=== PATIENT | male | born 1980 | race Caucasian/White ===

== ENCOUNTER 2017-09-19 18:33 | Emergency (ER) | payer OTHER ==
[~2017-09-19] VITALS: Ht 172.7 cm; Wt 147.4 kg
--- NOTE | 2017-09-19 18:58 | NUR ---
PT TO ER BED 10 C/O LLE CELLULITIS. APPEARS INFECTED. PT CAME IN W/ LOW GRADE FEVER AND TACHYCARDIC. GOWNED AND PLACED ON MONITOR. STABLE VITALS. MIGUEL ASHTON.
--- NOTE | 2017-09-19 21:15 | NUR ---
WIL SANCHEZ AT BEDSIDE FOR EVAL.
[2017-09-19] MEDS ORDERED: IV NS 0.9% 1,000 ML BAG IV ONE (21:30)
[2017-09-19] MEDS ORDERED: PIPERACILLIN /TAZOBACTAM 3.375 G in IV D5W 50 ML IV ONE (21:30)
[2017-09-19] MEDS ORDERED: VANCOMYCIN 1 GM in IV D5W 250 ML IV ONE (21:30)
[2017-09-19] MEDS ORDERED: PIPERACILLIN /TAZOBACTAM 3.375 G VIAL IV ONE (21:46)
[2017-09-19] MEDS ORDERED: VANCOMYCIN 1 GM VIAL ONE (21:46)
[2017-09-19 21:49] LABS: BASOPHILS % (AUTO) 0.7 % (0.0-2.0); EOSINOPHILS # (AUTO) 0.1 /CMM (0.0-0.7); EOSINOPHILS % (AUTO) 2.7 % (0.0-6.0); HEMATOCRIT 32 % (39-51); LYMPHOCYTES # (AUTO) 0.9 /CMM (0.8-4.8); LYMPHOCYTES % (AUTO) 23.9 % (20.0-44.0); MEAN CORPUSCULAR HEMOGLOBIN 32 PG (26.0-33.0); MEAN CORPUSCULAR HGB CONC 35 g/dl (31.0-36.0); MEAN CORPUSCULAR VOLUME 91 fL (80-96); MONOCYTES # (AUTO) 0.3 /CMM (0.1-1.30); MONOCYTES % (AUTO) 7.7 % (2.0-12.0); NEUTROPHILS # (AUTO) 2.7 /CMM (1.8-8.9); PLATELET COUNT (AUTO) 136 /CMM (150-450); RDW COEFFICIENT OF VARIATION 13.7 (11.5-15.0); RED BLOOD CELL COUNT(AUTO) 3.47 MIL/uL (4.5-6.0)
--- NOTE | 2017-09-19 21:51 | NUR ---
RADIOLOGY AT BEDSIDE FOR CHEST XRAY.
[2017-09-19 22:04] LABS: INR 1.11 (0.87-1.13); PROTHROMBIN TIME 11.6 SECS (9.5-12.7)
[2017-09-19 22:09] LABS: CALCIUM, SERUM 8.4 mg/dL (8.5-10.1); CREATININE 0.9 mg/dL (0.6-1.3); POTASSIUM 4.1 mmol/L (3.5-5.1)
[2017-09-19 22:14] LABS: ALBUMIN 2.9 g/dL (3.4-5.0); BILIRUBIN,TOTAL 0.8 mg/dL (0.2-1.0); TOTAL PROTEIN, SERUM 8.1 g/dL (6.4-8.2)
[2017-09-19 22:42] LABS: APPEARANCE,URINE CLOUDY (CLEAR); BILIRUBIN,URINE NEGATIVE (NEGATIVE); BLOOD, URINE TRACE-INTA Ery/uL (NEGATIVE); COLOR,URINE YELLOW (YELLOW); KETONES,URINE NEGATIVE (NEGATIVE); LEUKOCYTE ESTERASE ,URINE 1+ (NEGATIVE); NITRITE, URINE POSITIVE (NEGATIVE); PROTEIN,URINE NEGATIVE (NEGATIVE); UGLUCOSE 3+ mg/dL (NEGATIVE)
[2017-09-19 22:47] LABS: BACTERIA,URINE Many /HPF (None Seen); SQUAMOUS EPITHELIAL CELL,UR Rare /HPF (None Seen); WBC,URINE TOO NUMEROUS TO COUN /HPF (0-3)
[2017-09-19] MEDS ORDERED: ACETAMINOPHEN ES 500 MG TABLET ONE (23:06)
[2017-09-19] MEDS ORDERED: ACETAMINOPHEN ES 500 MG TABLET PO ONE (23:30)
--- NOTE | 2017-09-19 23:41 | NUR ---
ANATOLY CASTELLON AT BEDSIDE FOR WOUND CARE.
--- NOTE | 2017-09-19 23:51 | NUR ---
Patient discharged to home in stable condition. Written and verbal after care instructions given. Patient verbalizes understanding of instruction.IV removed. Catheter intact and site benign. Pressure and 4x4 applied to site. No bleeding noted.
[2017-09-19 23:53] VITALS: BP 125/68
== END 2017-09-19 23:54 | disposition home or self-care (01) ==
LOC: ER 18:39
DX: Z48.01 Encounter for change or removal of surgical wound dressing (principal); L08.89 Other specified local infections of the skin and subcutaneous tissue; N39.0 Urinary tract infection, site not specified; Z59.0 Homelessness
CPT/HCPCS: 36415; 71045; 73590; 80053; 81001; 83605; 85025; 85730; 87040 ×2; 87086; 93005; 96365; 96367; 99285; A4606; J2543 ×2; J3370; J7030; J7060; Z7610; 81000-TC

== ENCOUNTER 2018-07-04 19:54 | Emergency (ER) | payer OTHER ==
[~2018-07-04] VITALS: Ht 167.6 cm; Wt 90.7 kg
[2018-07-04 22:15] VITALS: BP 145/73
== END 2018-07-04 22:29 | disposition home or self-care (01) ==
LOC: ER 19:57
DX: M79.606 Pain in leg, unspecified (principal); G89.29 Other chronic pain; Z76.0 Encounter for issue of repeat prescription
CPT/HCPCS: 99283; A4606; Z7610

== ENCOUNTER 2019-01-18 16:23 | Emergency (ER) | payer OTHER, MEDICAID ==
[~2019-01-18] VITALS: Ht 172.7 cm; Wt 119.3 kg
[2019-01-18 16:30] VITALS: BP 132/99
[2019-01-18] MEDS ORDERED: IBUPROFEN 400 MG TABLET ONE (17:25)
[2019-01-18] MEDS ORDERED: IBUPROFEN 400 MG TABLET PO ONE (17:30)
== END 2019-01-18 17:30 | disposition home or self-care (01) ==
LOC: ER 16:23
DX: M79.605 Pain in left leg (principal); I10 Essential (primary) hypertension; Z60.2 Problems related to living alone

== ENCOUNTER 2019-04-17 17:30 | Emergency (ER) | payer MEDICAID, OTHER ==
[~2019-04-17] VITALS: Ht 172.7 cm; Wt 119.3 kg
[2019-04-17 17:58] VITALS: BP 142/79
== END 2019-04-17 18:56 | disposition home or self-care (01) ==
LOC: ER 17:30
DX: S81.802A Unspecified open wound, left lower leg, initial encounter (principal); Z60.2 Problems related to living alone; X58.XXXA Exposure to other specified factors, initial encounter; Y93.89 Activity, other specified; Y92.89 Other specified places as the place of occurrence of the external cause; Y99.8 Other external cause status

== ENCOUNTER 2019-09-03 01:32 | Inpatient (IN) | payer OTHER ==
[~2019-09-03] VITALS: Ht 172.7 cm; Wt 125.6 kg
--- NOTE | 2019-09-03 07:30 | NUR ---
RN MS NOTES PT IN BED, AWAKE, ALERT AND ORIENTED, NO COMPLAINT OF PAIN, NOT IN DISTRESS, CALL LIGHT WITHIN REACH, NEEDS ATTENDED.
--- NOTE | 2019-09-03 09:44 | NUR ---
WOUND CARE CONSULT: PT PRESENTS WITH PURULENT WOUNDS AND SOME HYPERGRANULAR TISSUE TO LEFT LOWER LEG/KNEE WOUNDS, PRESENT ON ADMISSION. DEFER TO MD FOR POSSIBLE ORTHO CONSULT. RECOMMENDATIONS MADE FOR WOUND CARE AND DISCUSSED WITH NURSING STAFF. PT IS CONTINENT AND INDEPENDENT WITH BED MOBILITY. WILL SEE PRN. CHANDLER IN AGREEMENT WITH PLAN OF CARE. Addendum: 09/03/19 at 0945 by ELIJAH GARCIA WNDNU Amended: Links added.
[2019-09-03] MEDS ORDERED: SILV20CR13 TP (10:17)
[2019-09-03] MEDS ORDERED: IBUP-1955 PO (10:17)
[2019-09-03] MEDS ORDERED: MAGNESIUM HYDROXIDE 30 ML UDC PO PRN (11:00)
[2019-09-03] MEDS ORDERED: HYDROCODONE/APAP 5/325MG 1 EACH TABLET PO PRN (11:00)
[2019-09-03] MEDS ORDERED: MAG HYDROX/AL HYDROX/SIMETH 30 ML UDC PO PRN (11:00)
[2019-09-03] MEDS ORDERED: ONDANSETRON HCL/PF 4 MG/2 ML VIAL IVP PRN (11:00)
[2019-09-03] MEDS ORDERED: ZOLPIDEM TARTRATE 5 MG TABLET PO PRN (11:00)
[2019-09-03] MEDS ORDERED: Z GUARD REMEDY 2 OZ OINT TP PRN (11:00)
[2019-09-03 11:53] LABS: CALCIUM, SERUM 8.2 mg/dL (8.5-10.1); CREATININE 0.8 mg/dL (0.6-1.3)
[2019-09-03] MEDS ORDERED: FEE PK DOSING 1 MIN EA MC ONE (12:16)
--- NOTE | 2019-09-03 13:00 | NUR ---
RN MS NOTES PT SEEN BY DR. CAIN, PLAN OF CARE DISCUSSED WITH PT, PT'S RECORDS REQUESTED FROM [facility] WITH PT'S CONSENT, PT ABLE TO AMBULATE WITH SLOW AND STEADY GAIT.
[2019-09-03] MEDS: VANCOMYCIN 1.25 GM in IV D5W 250 ML IV SCH ×2 (14:04→21:42)
[2019-09-03] MEDS: ENOXAPARIN SODIUM 40 MG/0.4 ML DISP.SYRIN SQ SCH (14:18)
[2019-09-03 16:20] VITALS: BP 123/63
[2019-09-03] MEDS: PIPERACILLIN /TAZOBACTAM 3.375 G in IV D5W 50 ML IV SCH ×2 (16:47→20:33)
[2019-09-03 17:26] LABS: BASOPHILS % (AUTO) 0.7 % (0.0-2.0); HEMATOCRIT 31 % (39-51); HEMOGLOBIN 10.2 g/dL (13.5-17.5); LYMPHOCYTES # (AUTO) 0.6 /CMM (0.8-4.8); LYMPHOCYTES % (AUTO) 25.9 % (20.0-44.0); MEAN CORPUSCULAR HGB CONC 33 g/dl (31.0-36.0); MEAN CORPUSCULAR VOLUME 90 fL (80-96); MONOCYTES # (AUTO) 0.2 /CMM (0.1-1.30); MONOCYTES % (AUTO) 9.6 % (2.0-12.0); NEUTROPHILS # (AUTO) 1.3 /CMM (1.8-8.9); NEUTROPHILS % (AUTO) 61.8 % (43.0-81.0); PLATELET COUNT (AUTO) 88 /CMM (150-450); RED BLOOD CELL COUNT(AUTO) 3.43 MIL/uL (4.5-6.0); WHITE BLOOD COUNT (AUTO) 2.1 K/uL (4.3-11.0)
[2019-09-03 17:41] LABS: LYMPHOCYTES % (MANUAL) 28 % (16-48); NEUTROPHILS % (MANUAL) 59 (42-76)
[2019-09-03 17:42] LABS: EOSINOPHILS % (MANUAL) 3 % (0-4); MONOCYTES % (MANUAL) 10 % (0-11.0)
--- NOTE | 2019-09-03 18:38 | NUR ---
RN MS NOTES PT IN BED, RESTING, PM MEDS GIVEN ORDERED, TOLERATING CURRENT DIET, CALL LIGHT WITHIN REACH, ALL NEEDS ATTENDED.
[2019-09-03] MEDS: ACETAMINOPHEN 325 MG TABLET PO PRN (18:51)
--- NOTE | 2019-09-03 19:30 | NUR ---
RN MS OPENING NOTES RECEIVED PATIENT IN BED ASLEEP, EASILY AROUSABLE, ALERT AND ORIENTED X4, VERBALLY RESPONSIVE, ABLE TO MAKE NEEDS KNOWN. BREATHING EVEN AND UNLABORED. NO SOB - ON ROOM AIR. DENIES PAIN OR DISCOMFORT. DENIES N/V. IV ON RIGHT HAND INTACT AND PATENT. AFEBRILE. ALL OTHER NEEDS ATTENDED TO. SAFETY MEASURES IN PLACE. CALL LIGHT WITHIN REACH. WILL CONTINUE TO MONITOR.
[2019-09-03 20:36] VITALS: BP 116/63
[2019-09-04] MEDS: PIPERACILLIN /TAZOBACTAM 3.375 G in IV D5W 50 ML IV SCH ×4 (02:16→20:22)
[2019-09-04 04:27] LABS: BASOPHILS % (AUTO) 0.6 % (0.0-2.0); EOSINOPHILS % (AUTO) 1.4 % (0.0-6.0); HEMATOCRIT 30 % (39-51); HEMOGLOBIN 10.1 g/dL (13.5-17.5); LYMPHOCYTES # (AUTO) 0.7 /CMM (0.8-4.8); MEAN CORPUSCULAR HGB CONC 33 g/dl (31.0-36.0); MEAN CORPUSCULAR VOLUME 90 fL (80-96); MONOCYTES # (AUTO) 0.2 /CMM (0.1-1.30); MONOCYTES % (AUTO) 8.4 % (2.0-12.0); NEUTROPHILS # (AUTO) 1.4 /CMM (1.8-8.9); NEUTROPHILS % (AUTO) 60.6 % (43.0-81.0); PLATELET COUNT (AUTO) 87 /CMM (150-450); RED BLOOD CELL COUNT(AUTO) 3.36 MIL/uL (4.5-6.0); WHITE BLOOD COUNT (AUTO) 2.3 K/uL (4.3-11.0)
[2019-09-04 04:42] LABS: CALCIUM, SERUM 8.3 mg/dL (8.5-10.1); CREATININE 0.8 mg/dL (0.6-1.3); MAGNESIUM 1.5 mg/dL (1.8-2.4); PHOSPHORUS 4.8 mg/dL (2.5-4.9); POTASSIUM 4.1 mmol/L (3.5-5.1)
[2019-09-04 04:50] LABS: THYROID STIMULATING HORMONE 1.465 uIU/mL (0.358-3.74)
[2019-09-04] MEDS: VANCOMYCIN 1.25 GM in IV D5W 250 ML IV SCH ×3 (05:17→21:40)
[2019-09-04 05:30] LABS: EOSINOPHILS % (MANUAL) 1 % (0-4); LYMPHOCYTES % (MANUAL) 26 % (16-48); MONOCYTES % (MANUAL) 6 % (0-11.0); NEUTROPHILS % (MANUAL) 67 (42-76)
--- NOTE | 2019-09-04 06:53 | NUR ---
RN MS CLOSING NOTES PATIENT RESTING IN BED. NO ACUTE CHANGES THROUGHOUT SHIFT. BREATHING EVEN AND UNLABORED. NO SOB - ON ROOM AIR. DENIES PAIN OR DISCOMFORT. IV ON RIGHT HAND INTACT AND PATENT. DRESSING ON LEFT LOWER LEG C/D/I. ALL OTHER NEEDS ATTENDED TO. SAFETY MEASURES IN PLACE. CALL LIGHT WITHIN REACH. WILL ENDORSE TO ONCOMING NURSE FOR ROGE.
--- NOTE | 2019-09-04 07:25 | NUR ---
RN OPENING NOTES PT IS AWAKE AND ASKING FOR PAIN MEDICATION STATING PAIN IN LEFT LEG. PT REQUESTING TYLENOL. PT IS ABLE TO MAKE NEEDS KNOWN. PT HAS TKO NS RUNNING IN IV 20 GAUGE. PT DENIES ANY SOB AT PRESENT MOMENT WILL CONTINUE TO MONITOR. BED IS LOCKED AND IN LOWEST POSITION WITH CALL LIGHT IN REACH.
[2019-09-04] MEDS: ACETAMINOPHEN 325 MG TABLET PO PRN (07:46)
[2019-09-04] MEDS: PANTOPRAZOLE 40 MG TABLET.DR PO SCH (07:46)
[2019-09-04 08:00] VITALS: BP 118/58
[2019-09-04] MEDS: ENOXAPARIN SODIUM 40 MG/0.4 ML DISP.SYRIN SQ SCH (08:29)
[2019-09-04] MEDS: Magnesium 1GM/D5W 100ML PREMIX 100 ML IV SCH ×2 (10:29→14:08)
--- NOTE | 2019-09-04 11:35 | NUR ---
SPOKE WITH SAID NOT NECESSARY TO REQUEST MEDICAL RECORDS PT IS BEING TRANSFERRED BACK TO [facility]
--- NOTE | 2019-09-04 11:48 | NUR ---
REPORT GIVEN TO BARRETT KERR FOR ROGE.
--- NOTE | 2019-09-04 12:00 | NUR ---
MS/RN report recieved Report received from Warren HYDE for ROGE of patient. Patient is resting in bed, showing no signs of acute distress or SOB, saturating >95% on RA. IV line is clean and patent. Bed is in lowest position, side rails x2 in upright position, call light is within reach and patient is aware of how to call for assistance when needed. Will continue with plan of care.
--- NOTE | 2019-09-04 13:00 | NUR ---
MS/RN note Transfer held as per MARIO Gaines and tita Leal. Will follow up with case management. Addendum: 09/04/19 at 1952 by CIRILO DELUNA RN Transfer to [facility]*
[2019-09-04] MEDS ORDERED: Magnesium 1GM/D5W 100ML PREMIX 100 ML IV SCH (14:30)
[2019-09-04 14:33] LABS: APPEARANCE,URINE CLEAR (CLEAR); BILIRUBIN,URINE NEGATIVE (NEGATIVE); BLOOD, URINE NEGATIVE Ery/uL (NEGATIVE); COLOR,URINE YELLOW (YELLOW); KETONES,URINE NEGATIVE (NEGATIVE); LEUKOCYTE ESTERASE ,URINE NEGATIVE (NEGATIVE); NITRITE, URINE NEGATIVE (NEGATIVE); PROTEIN,URINE NEGATIVE (NEGATIVE); UGLUCOSE NEGATIVE (NEGATIVE); UROBILINOGEN,URINE 0.2 EU/dL (0.2)
[2019-09-04 16:00] VITALS: BP 123/74
--- NOTE | 2019-09-04 18:30 | NUR ---
MS/RN Closing note Patient is resting in bed, A/O x4, showing no signs of acute distress or SOB, saturating >95% on RA. IV line is clean and patent. All patient needs met, all due meds given. Dressing change done. Bed is in lowest position, side rails x2 in upright position, call light is within reach and patient is aware of how to call for assistance when needed. Will endorse to overnight cashier.
[2019-09-04 19:30] VITALS: BP 114/64
--- NOTE | 2019-09-04 19:45 | NUR ---
MS RN NOTES PATIENT IN BED AWAKE, ALERT AND ORIENTED X 4. BREATHING EVEN AND UNLABORED ON ROOM AIR. DENIES ACUTE RESPIRATORY DISTRESS, NO ACUTE PAIN. IV ON RIGHT HAND #20G CLEAN DRY AND INTACT. SHOWS NO REDNESS, NO INFILTRATION. SAFETY PRECAUTIONS IN PLACE. BED IN LOWEST POSITION, LOCKED, AND CALL LIGHT KEPT WITHIN REACH. WILL CONTINUE TO MONITOR.
[2019-09-04 20:00] VITALS: BP 114/64
[2019-09-05] MEDS: PIPERACILLIN /TAZOBACTAM 3.375 G in IV D5W 50 ML IV SCH ×3 (02:08→14:00)
[2019-09-05] MEDS: VANCOMYCIN 1.25 GM in IV D5W 250 ML IV SCH ×2 (04:50→12:23)
[2019-09-05 06:40] LABS: CALCIUM, SERUM 8.3 mg/dL (8.5-10.1); CREATININE 0.9 mg/dL (0.6-1.3); POTASSIUM 4.2 mmol/L (3.5-5.1)
--- NOTE | 2019-09-05 06:45 | NUR ---
MS RN NOTES PATIENT IN BED ASLEEP, ALERT AND ORIENTED X 4. BREATHING EVEN AND UNLABORED ON ROOM AIR. DENIES ACUTE RESPIRATORY DISTRESS, NO ACUTE PAIN. IV ON RIGHT HAND #20G CLEAN DRY AND INTACT. SHOWS NO REDNESS, NO INFILTRATION. ALL DUE MEDICATIONS GIVEN. PATIENT REFUSED DRESSING CHANGE. SAFETY PRECAUTIONS IN PLACE. BED IN LOWEST POSITION, LOCKED, AND CALL LIGHT KEPT WITHIN REACH. WILL ENDORSE TO ONCOMING NURSE.
[2019-09-05] MEDS: PANTOPRAZOLE 40 MG TABLET.DR PO SCH ×2 (07:30→07:47)
--- NOTE | 2019-09-05 07:30 | NUR ---
RN OPENING NOTES RECEIVED PATIENT IN BED RESTING COMFORTABLY IN MODERATE HIGH BACK REST. ALERT AND ORIENTED X 4. NO SIGNS OF DISTRESS NOTED AT THIS TIME.. IV ON RIGHT HAND #20G. CLEAN DRY AND INTACT. SHOWS NO REDNESS, NO INFILTRATION. SAFETY PRECAUTIONS IN PLACE. BED IN LOWEST POSITION, LOCKED, AND CALL LIGHT KEPT WITHIN REACH. WILL CONTINUE TO MONITOR.
[2019-09-05 08:00] VITALS: BP 118/57
[2019-09-05] MEDS: ENOXAPARIN SODIUM 40 MG/0.4 ML DISP.SYRIN SQ SCH (08:07)
[2019-09-05 08:11] LABS: HIV SCRN 4G wRFX Non Reactive (Non Reactive)
--- NOTE | 2019-09-05 15:05 | NUR ---
AMA NOTES PATIENT CALLED AND WANTS TO TALK TO RN, PATIENT REFUSED ANTIBIOTIC, WANTS TO BE UNHOOK AND REFUSED ALL NURSING NEEDS. PATIENT DEMANDS TO GO HOME TODAY. EXPLAINED TO THE PATIENT THE RISKS OF GOING HOME AGAINST MEDICAL ADVICE. PATIENT STILL INSISTS AND DOES NOT WANT TO TALK TO DOCTOR OR ANYONE. MD AND CHARGE NURSE MADE AWARE. IV ACCESS REMOVED AND APPLIED PRESSURE DRESSINGS. ID BAND REMOVED. AMA FORM SIGNED. PATIENT LEFT AMBULATORY.
== END 2019-09-05 15:05 | disposition left against medical advice (07) | DRG 349 ==
LOC: MED 04:50
DX: T84.59XA Infection and inflammatory reaction due to other internal joint prosthesis, initial encounter (principal); L03.116 Cellulitis of left lower limb; M86.9 Osteomyelitis, unspecified; Z68.41 Body mass index [BMI] 40.0-44.9, adult; E66.9 Obesity, unspecified; Z72.0 Tobacco use; Y83.9 Surgical procedure, unspecified as the cause of abnormal reaction of the patient, or of later complication, without mention of misadventure at the time of the procedure; Y92.009 Unspecified place in unspecified non-institutional (private) residence as the place of occurrence of the external cause
CPT/HCPCS: 36415; 71046; 73590-TC; 80048-TC; 80061-TC; 80202-TC; 81000-TC; 83735-TC; 84100-TC; 84443-TC; 85025-TC; 86803; 87040-TC; 87070-TC; 87081-TC; 87086-TC; 87186-TC; 97116-TC; 97530-TC; A6253; A6403; G0378; J1650; J2543; J3370; J3475; J7050; J7060